=== PATIENT | female | born 1990 | race Caucasian/White ===

== ENCOUNTER 2020-09-16 13:29 | Outpatient (REF) | payer OTHER, SELFPAY ==
[2020-09-16 14:14] LABS: Anion Gap 13 (12-20); Blood Urea Nitrogen 13 mg/dL (9-16); Calcium 9.5 mg/dL (8.4-10.2); Carbon Dioxide 29 mmol/L (22-29); Chloride 103 mmol/L (96-108); Estimated Glomerular Filt Rate > 60; Glucose Random 123 mg/dL (60-115); Potassium 4.8 mmol/L (3.3-5.1); Sodium 140 mmol/L (135-145)
[2020-09-16 15:07] LABS: Erythrocyte Sedimentation Rate 6 MM/HR (0-20)
[2020-09-20 06:52] LABS: Angiotensin Converting Enzyme 13 U/L (9-67)
== END 2020-09-16 13:30 | disposition home or self-care (01) ==
LOC: HO.LAB 13:29
PROVIDERS: Visit Provider Psychiatry & Neurology Neurology
DX: G51.0 Bell's palsy (principal)
CPT/HCPCS: 36415; 80048; 82164; 85652

== ENCOUNTER 2020-09-23 16:32 | Outpatient (REF) | payer OTHER, MEDICAID, SELFPAY ==
--- NOTE | ~2020-09-23 | MR_ITS ---
EXAMINATION: MR BRAIN WITHOUT AND WITH CONTRAST CLINICAL INFORMATION: Left facial neuropathy COMPARISON: None TECHNIQUE: Multiplanar, multisequence MRI of the brain was obtained before and after the intravenous administration of 6.5 mL of Gadavist. FINDINGS: There is mild hyperenhancement of the left facial nerve involving the distal intracanalicular segment, labyrinthine segment, geniculate ganglion, tympanic and mastoid segments.. The right 7th and 8th cranial nerve complexes are symmetric in course, caliber, and enhancement characteristics. Major inner ear structures including the cochlea, semicircular canals, and vestibule are symmetric in morphology and demonstrate normal CSF signal. No enhancing intracanalicular or cerebellopontine angle mass lesion is visualized. No focal reduced diffusion is seen to suggest acute or subacute cerebral ischemia. No intracranial mass, intracerebral edema, intra-axial blood products, midline shift, or extra-axial collection is visualized. No pathologic enhancement is appreciated on postcontrast sequences. The ventricles and sulcal spaces appear normal. Normal arterial and venous vascular flow voids are present. The paranasal sinuses are well aerated. MR/MR head/brain wo/w con IMPRESSION: * Abnormal hyperenhancement of the LEFT facial nerve, most pronounced involving the geniculate ganglion, tympanic and mastoid segments as described. * Otherwise MR imaging appearance of the brain.
== END 2020-09-23 16:33 | disposition home or self-care (01) ==
LOC: HO.MRI 16:32
PROVIDERS: Visit Provider Psychiatry & Neurology Neurology
DX: G51.0 Bell's palsy (principal)
CPT/HCPCS: 70553; A9585

== ENCOUNTER 2024-11-16 09:16 | Outpatient (AMB) | payer OTHER, MEDICAID, SELFPAY ==
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
--- OUTSIDE RECORDS SUMMARY | 2024-11-16 09:42 | XMS_ITS | Encounter Summary ---
Author Organization [facility] Address [address] [place] [phone] Phone Care Team Providers Care Utility Helicopter Repairer Name Role Phone Unavailable Primary Care Provider Unavailabl e Encounter Details Date Type Department Care Team (Late st Contact Info) Description 01/02/2018 Conversion Encounter [facility] [address] [address] Social History Tobacco Use Types Packs/Day Years Used Date Smoking Tobacco: Never Assessed Comments Unknown Sex and Gender Information Value Date Recorded Sex Assigned at Not on file Legal Sex Female 6:10 PM EDT Gender Identity Not on file Sexual Orientation Not on file documented as of this encounter Plan of Treatment Not on file documented as of this encounter Visit Diagnoses Not on filedocumented in this encounter
--- OUTSIDE RECORDS SUMMARY | 2024-11-16 09:42 | XMS_ITS | Clinical Summary ---
Author Organization [facility] Address [address] [place] [address] Care Team Providers Care Attendant Lodging Facilities Name Role Phone Yary Cordova PA-C Primary Care Provider Allergies Active Allergy Reactions Criticality Noted Date Comments Nifedipine Hives 01/24/2021 Medications Medication Sig Dispensed Refills Start Date End Date Status valACYclovir (VALTREX) 500 MG tablet Take 1 tablet (500 mg total) by mouth daily. 0 Active SUMAtriptan (IMITREX) 25 MG tablet Take 1 tablet (25 mg total) by mouth every 2 (two) hours as needed for migraine. 0 Active albuterol 108 (90 Base) MCG/ACT inhaler Inhale 2 puffs into the lungs every 4 (four) hours as needed for wheezing. 0 Active Active Problems Problem Noted Date Diagnosed Date Protein S deficiency 01/27/2021 Dyslipidemia 02/09/2019 Migraine without aura and wi thout status migrainosus, not intractable 02/09/2019 Low grade squamous intraepit helial lesion (LGSIL) on Papanicolaou smear of cervix 11/20/2013 Overview: HPV positive Asthma, mild intermittent 06/25/2010 Family History Medical History Relation Name Comments Kidney disease Father Esophageal cancer Maternal Grandfather Melanoma Maternal Grandfather Anemia Mother Depression Mother Other Mother Protein S defic iency Relation Name Status Comments Father Alive Maternal Grandfather Alive Mother Alive Social History Tobacco Use Types Packs/Day Years Used Date Smoking Tobacco: Never Smokeless Tobacco: Never Tobacco Cessation:Counseling Given: Not Answered Alcohol Use Standard Drinks/Week Comments Yes 0 (1 standard drink = 0.6 oz pur e alcohol) socially during the holidays Sex and Gender Information Value Date Recorded Sex Assigned at Female 09/23/2023 8:16 AM EST Gender Identity Not on file Sexual Orientation Not on file Job Start Date Occupation Industry Not on file Not on file Not on file Last Filed Vital Signs Vital Sign Reading Time Taken Comments Blood Pressure 113/54 10/30/2023 7:59 AM EDT Pulse 56 10/30/2023 7:59 AM EDT Temperature 36.9 ??C (98.4 ??F) 10/30/2023 7:59 AM ED T Respiratory Rate 18 10/30/2023 7:59 AM EDT Oxygen Saturation 99% 10/30/2023 7:59 AM EDT Inhaled Oxygen Concentration - - Weight 70.8 kg (156 lb) 10/29/2023 3:49 PM EDT Height 162.6 cm (5' 4 ) 10/29/2023 3:49 PM EDT Body Mass Index 26.78 10/29/2023 3:49 PM EDT Plan of Treatment Health Maintenance Due Date Last Done Comments Hepatitis C Screening 1990 COVID-19 Vaccine (#1) 02/16/1991 Depression Screening 2002 BMI Counseling 2008 Preventative Health Evaluation 2008 Cervical Cancer Screening (Pap Smear) 2011 DTap / Tdap / Td (9 - Td or Tdap) 04/21/2021 04/21/2011, 09/23/2005, 09/23/2005, Additional history exists Influenza Vaccine (#1) 2024 6, 09/26/2012, 04/21/2011, Additional history exists Hepatitis B Vaccines Completed 03/20/1996, 09/20/1995, 08/20/1995 Pneumococcal Vaccine Aged Out 02/09/2019 No long er eligible based on patient's age to complete this topic RSV Ped < 20 months Aged Out No longe r eligible based on patient's age to complete this topic Advance Directives For more information, please contact: [phone] Latest Code Status on File Code Status Date Activated Date Inactivated Comments Full Code 10/29/2023 12:35 PM 10/30/2023 5:36 PM This code status was ascertained in the following way: discussion with patient . Care Teams Attendant Lodging Facilities Relationship Specialty Start Date End Date Yary Cordova PA-C [address] [place] [phone] PCP - General Medical Services 12/31/20
--- OUTSIDE RECORDS SUMMARY | 2024-11-16 09:42 | XMS_ITS | Clinical Summary ---
Author Organization [facility] Address [address] [place] [phone] Phone Care Team Providers Care Hat Stock Laminating Machine Operator Name Role Phone Unavailable Primary Care Provider Unavailabl e Immunizations Immunization Administration Dates Next Due DTaP 08/16/1995, 2,1990,10/14 HPV, Quadrivalent 10/06/2007,05/30/2007,03/28/20 07 Hep B, ped/adol 03/20/1996,09/20/1995,08/20/1995 Hib (PRP-T) 08/16/1991,1990,1990 IPV 08/16/1995, 2,1990,10/14 Influenza 05/30/2007 Influenza, injectable, quadr ivalent, preservative free 05/10/2008 MMR 09/16/1995,11/15/1991 Meningococcal Conj (Menactra) MCV4P 03/28/2007 Td (adult) (Tenivac), 5 Lf t etanus toxoid, PF, adsorbed 08/30/2000 Tdap 09/23/2005 Varicella 05/10/2008,12/03/1997 Family History Relation Name Status Comments Father Alive healthy age: 40 Maternal Grandfather Alive esophag eal cancer Maternal Grandmother Alive COPD Mother Alive healthy age: 37 Other Alive Siblings: healt hy Paternal Grandfather Alive healthy Paternal Grandmother After i llness. Social History Tobacco Use Types Packs/Day Years Used Date Smoking Tobacco: Never Assessed Comments Unknown Sex and Gender Information Value Date Recorded Sex Assigned at Not on file Legal Sex Female 6:10 PM EDT Gender Identity Not on file Sexual Orientation Not on file Plan of Treatment Health Maintenance Due Date Last Done Comments DTaP,Tdap,and Td Vaccines (6 - Td or Tdap) 09/23/2015 09/23/2005, 08/30/2000, 08/16/1995, Additional history exists Influenza Vaccines (#1) 2024 05/10/2008, 05/30 COVID-19 Vaccine () 04/16/2024 HIB Vaccines Completed 08/16/1991, 08/1990, 1990 IPV Vaccines Completed 08/16/1995, 08/1991, 1990, Additional history exists MMR Vaccines Completed 09/16/1995, 11/15/1991 Hepatitis B Vaccines Completed 03/20/1996, 09/20/1995, 08/20/1995 Meningococcal Vaccine Completed 03/28/2007 HPV Vaccines Completed 10/06/2007, 05/16, 03/28/2007 Varicella Vaccines Completed 05/10/2008, 12/03/1997 Hepatitis A Vaccines Aged Out No long er eligible based on patient's age to complete this topic Men B Vaccine Aged Out No longer elig ible based on patient's age to complete this topic Pneumococcal Vaccine Aged Out No long er eligible based on patient's age to complete this topic
--- OUTSIDE RECORDS SUMMARY | 2024-11-16 09:42 | XMS_ITS ---
Author Name [facility] Organization Unknown History of Medication Use Medication Directions Dispensed Refills Start Date End Date Stat SUMAtriptan (IMITREX) tablet 25 mg 25 mg, Oral, Every 2 hours PRN, migraine, Starting on Wed10/29/23 at 1443Max of 2 doses in a 24 hour period 10/29/2023 active albuterol 108 (90 Base) MCG/ACT inhaler Inhale 2 puffs into the lungs every 4 (four) hours as needed for wheezing. active polyethylene glycol (MIRALAX) 17 g packet Take 17 g by mouth daily. 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
[2024-11-16 09:51] VITALS: BP 112/62; PULSE 85; RESP 14; O2SAT 99; BMI 23.4
== END 2024-11-16 10:16 | disposition home or self-care (01) ==
LOC: HO.HMCFM 09:17
PROVIDERS: PCP Physician Assistant Medical; Visit Provider Physician Assistant Medical
DX: Z00.00 Encounter for general adult medical examination without abnormal findings (principal)

== ENCOUNTER → 2024-11-16 09:16 | Outpatient (BNVA) | payer OTHER, MEDICAID, SELFPAY | PROVIDERS: PCP Physician Assistant Medical; Visit Provider Physician Assistant Medical | DX: Z00.00 Encounter for general adult medical examination without abnormal findings (principal); B02.9 Zoster without complications | CPT/HCPCS: 96127 ==

== ENCOUNTER 2025-02-06 12:03 | Outpatient (REF) | payer OTHER, MEDICAID, SELFPAY ==
--- OUTSIDE RECORDS SUMMARY | 2025-02-06 13:39 | XMS_ITS | Clinical Summary ---
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 Name Role Phone Physician, No Pcp Primary Care Provider Unavaila ble Surgical History Surgery Date Site/Laterality Comments LAPAROTOMY OVARIAN CYSTECTOMY 04/2015 Left PROCEDURE:LAPAROSCOPIC OVARIAN CYSTECTOMY HAND SURGERY Right PROCEDURE:HAND SURGERY;COMMENT:metal plates/screws in right hand SALPINGECTOMY Bilateral PROCEDURE:SALPINGECTOMY HYSTERECTOMY PROCEDURE:HYSTERECTOMY BREAST LUMPECTOMY Left PROCEDURE:BREAST LUMPECTOMY;COMMENT:per H&P WISDOM TOOTH EXTRACTION PROCEDURE:WISDOM TOOTH EXTRACTION OTHER SURGICAL HISTORY 10/29/2023 N/A PROCEDURE:ABDOMINOPLASTY;COMM ENT:Procedure: ABDOMINOPLASTY, MONSPLASTY; Surgeon: Vitor Chiu MD; Location: [facility] MAIN OPERATING ROOM; Service: Plastics; Laterality: N/A; Medical History Medical History Date Comments Anemia DX:Anemia Protein S deficiency (CMS/HCC V24) DX:Protein S deficiency (HCC) Asthma, mild intermittent DX:Ast [...] Health Maintenance Due Date Last Done Comments Cervical Cancer Screening: Pap Smear 2011 Depression Screening 01/15/2020 HIV Screening 01/15/2020 Hepatitis C Screening 01/15/2020 Social Influencers of Health Screening 01/15/2020 Pneumococcal Vaccine: Pediatrics (0 to 5 Years) and At-Risk Patients (6 to 64 Years) (2 of 2 - PCV) 02/10/2020 02/09/2019 COVID-19 Vaccine ( season) 2024 01/05/2022, 06/23/2021, 12/19/2020, Additional history exists Influenza Vaccine (Season Ended) 2025 05/13/2023, 06/15/2022, 06/25/2021, Additional history exists DTaP,Tdap,and Td Vaccines (13 - Td or Tdap) 01/13/2027 01/13/2017, 10/10/2013, 04/21/2011, Additional history exists HIB Vaccines Completed 08/16/1991, 08/1991, 1990, Additional history exists IPV Vaccines Completed 08/16/1995, 08/1991, 08/16/1991, Additional history exists MMR Vaccines Completed 09/16/1995, 11/15/1991 Hepatitis B Vaccines Completed 03/20/1996, 09/20/1995, 08/20/1995 HPV Vaccines Completed 10/06/2007, 05/16, 03/28/2007 Varicella Vaccines Completed 05/10/2008, 12/03/1997 Meningococcal ACWY Vaccine Completed 02/22/2014, Hepatitis A Vaccines Aged Out No long er eligible based on patient's age to complete this topic Meningococcal B Vaccine Aged Out No l onger eligible based on patient's age to complete this topic RSV Immunization Patients Under 20 months Aged Out No longer eligible based on patient's age to complete this topic Care Teams Composing Machine Operator/Tender Relationship Specialty Start Date End Date Physician, No Pcp PCP - General 01/23/25
[2025-02-06 14:06] LABS: MANUAL DIFF FLAG NO
[2025-02-06 14:08] LABS: Basophils Percent Auto 0.6 % (0-2); Eosinophils Absolute Auto 0.1 X10*3/uL (0.0-0.4); Eosinophils Percent Auto 1.5 % (0-4); Hematocrit 37.9 % (37.0-47.0); Imm Gran Abs Auto 0.03 X10*3/uL (0.00-0.03); Imm Gran Pct Auto 0.4 % (0.0-0.4); Lymphocytes Absolute Auto 2.3 X10*3/uL (1.2-4.9); Mean Corpuscular HGB Conc 34.3 g/dl (31.0-35.0); Mean Corpuscular Hemoglobin 31.5 pg (27.0-33.0); Mean Corpuscular Volume 91.8 fL (80.0-98.0); Monocytes Absolute Auto 0.6 X10*3/uL (0.1-1.2); Monocytes Percent Auto 9.2 % (2-11); Neutrophils Absolute Auto 3.6 x10*3/uL (2.0-8.3); Neutrophils Percent Auto 54.3 % (45-73); Platelet Count 232 X10*3/uL (160-400); Red Blood Count 4.13 X10*6/uL (4.20-5.50); Red Cell Distribution Width 12.2 % (11.0-16.0); White Blood Count 6.7 X10*3/uL (4.8-10.8)
[2025-02-06 14:46] LABS: Alanine Aminotransferase 15 U/L (0-31); Albumin Level 4.4 g/dL (3.5-5.0); Alkaline Phosphatase 41 U/L (39-117); Anion Gap 9 (12-20); Aspartate Amino Transferase 21 U/L (5-31); Bilirubin Total 0.6 mg/dL (0.0-1.0); Blood Urea Nitrogen 9 mg/dL (9-16); Calcium 8.9 mg/dL (8.4-10.2); Carbon Dioxide 28 mmol/L (22-29); Chloride 105 mmol/L (96-108); Cholesterol 232 mg/dL (<200); Estimated Glomerular Filt Rate > 60; Ferritin 20 ng/mL (10-122); Glucose Random 96 mg/dL (60-115); HDL Cholesterol 60 mg/dL (>40); Iron 98 mcg/dL (30-160); LDL Cholesterol Calculated 155 mg/dL (<100); Percent Iron Saturation 34 % (15-50); Potassium 4.4 mmol/L (3.3-5.1); Sodium 138 mmol/L (135-145); TSH reflex Free T4 1.85 uIU/mL (0.32-4.0); Total Iron Binding Capacity 285 mcg/dL (228-428); Triglycerides 88 mg/dL (<150); Unsaturated Iron Binding 187 ug/dL
== END 2025-02-06 12:04 | disposition home or self-care (01) ==
LOC: HO.WFDLDS 12:03
PROVIDERS: Visit Provider Physician Assistant Medical
DX: Z00.00 Encounter for general adult medical examination without abnormal findings (principal); Z13.6 Encounter for screening for cardiovascular disorders; E78.5 Hyperlipidemia, unspecified; R53.83 Other fatigue
CPT/HCPCS: 36415; 80053; 80061; 82728; 83540; 84443; 85025